=== PATIENT | female | born 1985 | race Two or more races ===

== ENCOUNTER 2019-02-08 12:07 | Emergency (ER) | payer MEDICAID ==
[~2019-02-08] VITALS: Ht 154.9 cm; Wt 64.0 kg
[2019-02-08 15:10] VITALS: BP 101/63
== END 2019-02-08 15:11 | disposition home or self-care (01) ==
LOC: ER 12:50
DX: B00.1 Herpesviral vesicular dermatitis (principal)
CPT/HCPCS: 99283

== ENCOUNTER 2019-04-11 06:03 | Emergency (ER) | payer MEDICAID ==
[~2019-04-11] VITALS: Ht 160 cm; Wt 64.0 kg
[2019-04-11] MEDS ORDERED: IBUPROFEN 600MG TABLET PO STA (07:00)
[2019-04-11 07:04] VITALS: BP 114/62
== END 2019-04-11 07:46 | disposition home or self-care (01) ==
LOC: ER 06:03
DX: S63.639A Sprain of interphalangeal joint of unspecified finger, initial encounter (principal); W23.0XXA Caught, crushed, jammed, or pinched between moving objects, initial encounter; Y93.89 Activity, other specified; Y92.89 Other specified places as the place of occurrence of the external cause; Y99.8 Other external cause status
CPT/HCPCS: 73140; 99283

== ENCOUNTER 2019-09-30 15:25 | Emergency (ER) | payer MEDICAID ==
[~2019-09-30] VITALS: Ht 160 cm; Wt 63.5 kg
[2019-09-30 19:15] LABS: CLARITY URINE CLOUDY (CLEAR); COLOR URINE YELLOW (YELLOW); KETONES URINE NEGATIVE (NEGATIVE); LEUKOCYTE ESTERASE URINE 1+ (NEGATIVE); NITRITE URINE POSITIVE (NEGATIVE); OCCULT BLOOD URINE NEGATIVE (NEGATIVE); PROTEIN URINE NEGATIVE (NEGATIVE); SPECIFIC GRAVITY URINE 1.021 (1.005-1.030); UROBILINOGEN URINE 0.2 E.U./dL (0.2-1.0)
[2019-09-30] MEDS ORDERED: ACETAMINOPHEN 325MG TABLET PO ONE (19:15)
[2019-09-30 20:02] VITALS: BP 124/79
[2019-10-03 05:08] LABS: NEISSERIA GONORRHOEAE NAA Negative (Negative)
== END 2019-09-30 20:02 | disposition home or self-care (01) ==
LOC: ER 15:25
DX: N39.0 Urinary tract infection, site not specified (principal); N76.0 Acute vaginitis; Z90.710 Acquired absence of both cervix and uterus
CPT/HCPCS: 81003; 81025; 87210; 87491; 87591; 99283